=== PATIENT | male | born 1995 | race American Indian/Alaskan Native ===

== ENCOUNTER 2019-12-17 22:30 | Emergency (ER) | payer SELFPAY ==
[2019-12-18 00:08] LABS: Basophils # (Auto) 0.1 K/mm3 (0.0-0.1); Basophils % (Auto) 0.8 % (0.0-1.8); Eosinophils % (Auto) 0.2 % (0.0-4.3); Hematocrit 44.5 % (35.5-45.6); Hemoglobin 15.3 gm/dl (11.8-15.2); Lymphocytes # (Auto) 2.5 K/mm3 (1.2-5.4); Mean Corpuscular HGB Conc 34 % (32-34); Mean Corpuscular Volume 88 fl (84-94); Monocytes # (Auto) 0.9 K/mm3 (0.0-0.8); Platelet Count 168 K/mm3 (140-440); Red Blood Count 5.08 M/mm3 (3.65-5.03)
[2019-12-18] MEDS ORDERED: ONDANSETRON 4 MG ODT TAB PO ONE (00:10)
[2019-12-18] MEDS ORDERED: KETOROLAC 30 MG/1 ML INJ IM ONE (00:10)
[2019-12-18] MEDS ORDERED: FAMOTIDINE 20 MG TAB PO ONE (00:10)
[2019-12-18 00:20] LABS: Alanine Aminotransferase 30 units/L (7-56); BUN/Creatinine Ratio 19; Blood Urea Nitrogen 17 mg/dL (9-20); Calcium 10.1 mg/dL (8.4-10.2); Hemolysis Index 13
--- NOTE | 2019-12-18 02:04 | Cat Scan Report ---
CT abdomen pelvis wo con INDICATION / CLINICAL INFORMATION: LLQ pain, LT FLANK PAIN. TECHNIQUE: Axial CT imaging of abdomen and pelvis was obtained without contrast. Coronal and sagittal reformatte d imaging obtained and reviewed. All CT scans at this location are performed using CT dose reduction for ALARA by means of automated exposure control. COMPARISON: None available. FINDINGS: CT abdomen without contrast demonstrates grossly normal appearance of the liver, spleen, pancreas, ki dneys, and adrenal glands. Gallbladder is grossly unremarkable as well. No intrarenal calculi or hydr onephrosis is noted. CT pelvis demonstrates normal appearance of the appendix within the right lower quadrant. There is no pelvic mass, free fluid, or focal inflammatory change identified. There is large amount of retained stool throughout the colon consistent with constipation. No evidence for fecal impaction. Visualized lung bases are clear. No significant acute osseous abnormality. IMPRESSION: 1. Constipation. No other significant finding. Signer Name: Micaela Santoyo MD Signed: 12/18/2019 2:00 AM Workstation Name: [id number]
[2019-12-18] MEDS ORDERED: MAGNESIUM CITRATE 300 ML ORAL LIQD PO ONE (02:28)
--- NOTE | 2019-12-18 02:57 | Emergency Department Report ---
ED Abdominal Pain HPI - General Chief Complaint: Abdominal Pain Stated Complaint: STOMACH PAIN/ BI-KNEE PAIN Source: patient Mode of arrival: Ambulatory Limitations: No Limitations - History of Present Illness Initial Comments: Patient is a 24-year-old -[place] male with no past medical history who presents to the ED with complaint of acute onset persistent left lower quadrant abdominal pain with nausea for the last 2 days. Patient also complains of bilateral knee pain for over 1 week after strenuous walking. Patient denies fever, chills, vomiting, diarrhea, dysuria, urinary frequency and urgency, testicular pain, hematuria, chest pain or shortness of breath, headache or traumatic injury, fall or heavy lifting. Patient states that he has not had a bowel movement in over 2 days. MD Complaint: abdominal pain, other (bilateral knee pain) -: Sudden (2) Location: LLQ Radiation: none Migration to: no migration Severity scale (0 -10): 3 Quality: aching, sharp Consistency: constant Improves With: nothing Worsens With: nothing Associated Symptoms: denies other symptoms, nausea, constipation. denies: vomiting, diarrhea, fever, chills, dysuria, hematemesis, hematochezia, melena, hematuria, anorexia, syncope - Related Data Previous Rx's Medication Instructions Recorded Last Taken Type Dicyclomine [Bentyl] 20 mg PO Q6H PRN #20 tablet 12/18/19 Unknown Rx Docusate Sodium [Colace CAP] 100 mg PO BID PRN #60 capsule 12/18/19 Unknown Rx Ibuprofen [Motrin] 600 mg PO Q8H PRN #20 tablet 12/18/19 Unknown Rx Magnesium Citrate [Citrate of 296 ml PO ONCE #1 bottle 12/18/19 Unknown Rx Magnesia] Allergies Allergy/AdvReac Type Severity Reaction Status Date / Time No Known Allergies Allergy Unverified 12/17/19 23:19 ED Review of Systems ROS: Stated complaint: STOMACH PAIN/ BI-KNEE PAIN Other details as noted in HPI Constitutional: denies: chills, fever Eyes: denies: eye pain, eye discharge, vision change ENT: denies: ear pain, throat pain Respiratory: denies: cough, shortness of breath, wheezing Cardiovascular: denies: chest pain, palpitations Endocrine: no symptoms reported Gastrointestinal: abdominal pain, nausea. denies: diarrhea Genitourinary: denies: urgency, dysuria Musculoskeletal: arthralgia (Bilateral knee joint pain). denies: back pain, joint swelling Skin: denies: rash, lesions Neurological: denies: headache, weakness, paresthesias Psychiatric: denies: anxiety, depression Hematological/Lymphatic: denies: easy bleeding, easy bruising ED Past Medical Hx - Past Medical History Previous Medical History?: Yes Hx Asthma: Yes - Surgical History Past Surgical History?: Yes Additional Surgical History: Left knee injury X 4 years. - Social History Smoking Status: Never Smoker Substance Use Type: None - Medications Home Medications: Home Medications Medication Instructions Recorded Confirmed Last Taken Type Dicyclomine [Bentyl] 20 mg PO Q6H PRN #20 tablet 12/18/19 Unknown Rx Docusate Sodium [Colace CAP] 100 mg PO BID PRN #60 capsule 12/18/19 Unknown Rx Ibuprofen [Motrin] 600 mg PO Q8H PRN #20 tablet 12/18/19 Unknown Rx Magnesium Citrate [Citrate of 296 ml PO ONCE #1 bottle 12/18/19 Unknown Rx Magnesia] ED Physical Exam - General Limitations: No Limitations General appearance: alert, in no apparent distress - Head Head exam: Present: atraumatic, normocephalic, normal inspection - Eye Eye exam: Present: normal appearance, PERRL, EOMI Pupils: Present: normal accommodation - ENT ENT exam: Present: normal exam, normal orophraynx, mucous membranes moist, TM's normal bilaterally, normal external ear exam - Neck Neck exam: Present: normal inspection, full ROM. Absent: tenderness - Respiratory Respiratory exam: Present: normal lung sounds bilaterally. Absent: respiratory distress, wheezes, rhonchi, chest wall tenderness, accessory muscle use, decreased breath sounds - Cardiovascular Cardiovascular Exam: Present: normal rhythm, tachycardia, normal heart sounds. Absent: systolic murmur, diastolic murmur, rubs, gallop - GI/Abdominal GI/Abdominal exam: Present: soft, tenderness (Mildly tender left lower quadrant, no guarding or rebound), normal bowel sounds. Absent: guarding, rebound, hyperactive bowel sounds, hypoactive bowel sounds - Extremities Exam Extremities exam: Present: normal inspection, full ROM, normal capillary refill. Absent: tenderness, pedal edema, joint swelling - Back Exam Back exam: Present: normal inspection, full ROM. Absent: tenderness, CVA tenderness (R), muscle spasm, paraspinal tenderness - Neurological Exam Neurological exam: Present: alert, oriented X3, CN II-XII intact, normal gait, reflexes normal - Psychiatric Psychiatric exam: Present: normal affect, normal mood - Skin Skin exam: Present: warm, dry, intact, normal color. Absent: rash ED Course Vital Signs 12/17/19 12/18/19 22:34 03:13 Temperature 98.0 F Pulse Rate 108 H 90 Respiratory 18 17 Rate Blood Pressure 131/77 104/66 O2 Sat by Pulse 97 99 Oximetry ED Medical Decision Making - Lab Data Result diagrams: 12/17/19 23:34 12/17/19 23:34 - Radiology Data Radiology results: report reviewed, image reviewed Findings [facility] [address] [place] [address] Cat Scan Report Signed Patient: SHAVON HOBBS MR#: [id number] : 1995 Acct:[id number] Age/Sex: 24 / M ADM Date: 12/17/19 Loc: ED Attending Dr: Ordering Physician: ADA CHO Date of Service: 12/18/19 Procedure(s): CT abdomen pelvis wo con Accession Number(s): [id number] cc: ADA CHO CT abdomen pelvis wo con INDICATION / CLINICAL INFORMATION: LLQ pain, LT FLANK PAIN. TECHNIQUE: Axial CT imaging of abdomen and pelvis was obtained without contrast. Coronal and sagittal reformatted imaging obtained and reviewed. All CT scans at this location are performed using CT dose reduction for ALARA by means of automated exposure control. COMPARISON: None available. FINDINGS: CT abdomen without contrast demonstrates grossly normal appearance of the liver, spleen, pancreas, kidneys, and adrenal glands. Gallbladder is grossly unremarkable as well. No intrarenal calculi or hydronephrosis is noted. CT pelvis demonstrates normal appearance of the appendix within the right lower quadrant. There is no pelvic mass, free fluid, or focal inflammatory change identified. There is large amount of retained stool throughout the colon consistent with constipation. No evidence for fecal impaction. Visualized lung bases are clear. No significant acute osseous abnormality. IMPRESSION: 1. Constipation. No other significant finding. Signer Name: Micaela Santoyo MD Signed: 12/18/2019 2:00 AM Workstation Name: [id number] Transcribed By: Dictated By: Micaela Santoyo MD Electronically Authenticated By: Micaela Santoyo MD Signed Date/Time: 12/18/19 020 DD/ 6 TD/TT: - Medical Decision Making This is a 24-year-old male who presented to the ED with persistent left lower quadrant abdominal pain. In the ED, patient is alert and oriented x3 and is not in distress but tachycardic in triage. Lab test results were reviewed and are all nonactionable. Abdomen pelvis CT scan without contrast shows a large amount of retained stool throughout the colon consistent with constipation. No evidence for fecal impaction. There are no other abnormal findings. Patient was treated for pain in the ED and on reevaluation, patient's pain is well controlled medications. Patient also received magnesium citrate solution in the ED to drink. Patient was discharged home on pain medications and more stool softeners and was advised to follow-up with his [facility] clinic for further evaluation in 5 to 7 days. Patient was advised to return to the ED immediately if symptoms get worse. - Differential Diagnosis Colitis; Constipation; Kidney stones; UTI; appendicitis Critical care attestation.: If time is entered above; I have spent that time in minutes in the direct care of this critically ill patient, excluding procedure time. ED Disposition Clinical Impression: Abdominal pain in male Muscle strain of knee Qualifiers: Encounter type: initial encounter Laterality: unspecified laterality Qualified Code(s): S86.919A - Strain of unspecified muscle(s) and tendon(s) at lower leg level, unspecified leg, initial encounter Constipation Qualifiers: Constipation type: other constipation type Qualified Code(s): K59.09 - Other constipation Disposition: DC-01 TO HOME OR SELFCARE Is pt being admited?: No Does the pt Need Aspirin: No Condition: Stable Instructions: Constipation (ED), Abdominal Pain (ED), Knee Pain (ED) Additional Instructions: Your imaging test results shows a significant constipation in your colon. Otherwise lab test results were unremarkable. Take medication with food, drink plenty of fluids and follow-up with your primary care physician in 7 to 10 days for reevaluation. Return to the ED immediately if symptoms get worse. Prescriptions: Dicyclomine [Bentyl] 20 mg PO Q6H PRN #20 tablet PRN Reason: Pain , Severe (7-10) Magnesium Citrate [Citrate of Magnesia] 296 ml PO ONCE #1 bottle Docusate Sodium [Colace CAP] 100 mg PO BID PRN #60 capsule PRN Reason: Constipation Ibuprofen [Motrin] 600 mg PO Q8H PRN #20 tablet PRN Reason: Pain Referrals: [facility] [Outside] - 3-5 Days Time of Disposition: 02:59 Print Language: PORTUGUESE
[2019-12-18 03:15] VITALS: BP 104/66
== END 2019-12-18 03:15 | disposition home or self-care (01) ==
LOC: ED 22:30
DX: S86.911A Strain of unspecified muscle(s) and tendon(s) at lower leg level, right leg, initial encounter (principal); S86.912A Strain of unspecified muscle(s) and tendon(s) at lower leg level, left leg, initial encounter; K59.09 Other constipation; J45.909 Unspecified asthma, uncomplicated; X58.XXXA Exposure to other specified factors, initial encounter; Y93.89 Activity, other specified; Y92.89 Other specified places as the place of occurrence of the external cause; Y99.8 Other external cause status
CPT/HCPCS: 36415; 74176; 80053; 83690; 85025; 96372; 99284; J1885; Q0162